=== PATIENT | male | born 1950 | race Caucasian/White ===

== ENCOUNTER 2020-10-31 20:05 | Emergency (ER) | payer MEDICARE ==
--- NOTE | 2020-10-31 20:47 | RAD ---
Exam: Left hand 3 views. Left wrist 3 views INDICATION: Injury TECHNIQUE: Frontal, lateral and oblique views of the left hand and left wrist Comparisons: None FINDINGS: Hand: Bone mineralization is normal. No acute or healed fractures. Soft tissues are unremarkable. Joint spa stan[place] are well-maintained. Wrist: There is a mildly displaced triquetral fracture. Soft tissue swelling along the dorsal aspect of the wrist. Joint spaces are well-maintained. Bone mineralization is normal. IMPRESSION: 1. Mildly displaced triquetral fracture along the dorsal aspect of the wrist. 2. Otherwise, no acute fracture identified at the left hand Electronically signed by: Darren Perez MD (10/31/2020 8:44 PM) JACINDA
--- NOTE | 2020-10-31 20:57 | PHYS DOC ---
General Adult EDM: Chief Complaint: WRIST PAIN HPI: HPI: Patient is a 70-year-old male who presents after a fall with his hand extended. Patient is reporting left wrist pain. Denies hitting head, denies loss of consciousness. Denies dizziness prior to fall. Denies taking anything for pain prior to arrival. Range of motion intact. (DEL BERNARDO APRN) Review of Systems: Review of Systems: Constitutional: Denies fever or chills Eyes: Denies change in visual acuity HENT: Denies nasal congestion or sore throat Respiratory: Denies cough or shortness of breath Cardiovascular: Denies chest pain or edema GI: Denies abdominal pain, nausea, vomiting, bloody stools or diarrhea : Denies dysuria Musculoskeletal: Left wrist pain Integument: Denies rash Neurologic: Denies headache, focal weakness or sensory changes Endocrine: Denies polyuria or polydipsia Lymphatic: Denies swollen glands Psychiatric: Denies depression or anxiety (DEL BERNARDO APRN) Physical Exam: PE: Constitutional: Well developed, well nourished, no acute distress, non-toxic appearance. [] HENT: Normocephalic, atraumatic, bilateral external ears normal, oropharynx moist, no oral exudates, nose normal. [] Eyes: PERRLA, EOMI, conjunctiva normal, no discharge. [] Neck: Normal range of motion, no tenderness, supple, no stridor. [] Cardiovascular:Heart rate regular rhythm, no murmur [] Lungs & Thorax: Bilateral breath sounds clear to auscultation [] Abdomen: Bowel sounds normal, soft, no tenderness, no masses, no pulsatile masses. [] Skin: Warm, dry, no erythema, no rash. [] Back: No tenderness, no CVA tenderness. [] Extremities: Left wrist tenderness, no cyanosis, no clubbing, ROM intact, no edema, radial pulse intact, cap refill less than 2 seconds. [] Neurologic: Alert and oriented X 3, normal motor function, normal sensory function, no focal deficits noted. [] Psychologic: Affect normal, judgement normal, mood normal. [] (DEL BERNARDO APRN) EKG: EKG: [] (DEL BERNARDO APRN) Radiology/Procedures: Radiology/Procedures: [] Exam: Left hand 3 views. Left wrist 3 views INDICATION: Injury TECHNIQUE: Frontal, lateral and oblique views of the left hand and left wrist Comparisons: None FINDINGS: Hand: Bone mineralization is normal. No acute or healed fractures. Soft tissues are unremarkable. Joint spaces are well-maintained. Wrist: There is a mildly displaced triquetral fracture. Soft tissue swelling along the dorsal aspect of the wrist. Joint spaces are well-maintained. Bone mineralization is normal. IMPRESSION: 1. Mildly displaced triquetral fracture along the dorsal aspect of the wrist. 2. Otherwise, no acute fracture identified at the left hand Electronically signed by: Darren Perez MD (10/31/2020 8:44 PM) JACINDA (DEL BERNARDO APRN) Heart Score: C/O Chest Pain: No Risk Factors: Risk Factors: DM, Current or recent (<one month) smoker, HTN, HLP, family history of CAD, obesity. Risk Scores: Score 0 - 3: 2.5% MACE over next 6 weeks - Discharge Home Score 4 - 6: 20.3% MACE over next 6 weeks - Admit for Clinical Observation Score 7 - 10: 72.7% MACE over next 6 weeks - Early Invasive Strategies (DEL BERNARDO APRN) Course & Med Decision Making: Course & Med Decision Making Pertinent Labs and Imaging studies reviewed. (See chart for details) [] 70-year-old male presents after a fall with his hand extended. Mildly displaced triquetral fracture along the dorsal aspect of the wrist. Thumb spica cast applied. Patient given [facility] office phone number. Instructed patient to call tomorrow and make a follow-up appointment. Radial pulses intact, cap refill less than 2 seconds. Range of motion intact. Patient given 5/325 hydrocodone in emergency room. Patient given hydrocodone to take at home until he can follow-up with PCP and Ortho. Gave fall precautions with taking medication. Patient advised to take ibuprofen as well. Patient is appreciative and okay with discharge plan. (DEL BERNARDO APRN) Dragon Disclaimer: Dragon Disclaimer: This electronic medical record was generated, in whole or in part, using a voice recognition dictation system. (DEL BERNARDO APRN) Departure Departure: Impression: Primary Impression: Wrist fracture Qualified Codes: S62.102A - Fracture of unspecified carpal bone, left wrist, initial encounter for closed fracture Disposition: HOME / SELF CARE / HOMELESS Condition: STABLE Referrals: GABBY NUNEZ MD (PCP) Patient Instructions: Wrist Fracture, [id number] Additional Instructions: You were seen in the emergency room for left wrist fracture. A splint was placed on your left wrist. Please call [facility] and make a follow-up appointment. Their number is [phone]. Please call them in the morning to set up an appointment. Return to the emergency room if worsening symptoms or concerns. Ibuprofen at home for discomfort. EMERGENCY DEPARTMENT GENERAL DISCHARGE INSTRUCTIONS Thank you for coming to [facility] (ED) today and trusting us with you care. We trust that you had a positivie experience in our Emergency Department. If you wish to speak to the department management, you may call the director at [phone]. YOUR FOLLOW UP INSTRUCTIONS ARE FOLLOWS: 1. Do you have a private Doctor? If you do not have a private doctor, please ask for a resource list of physicians or clinics that may be able to assist you with follow up care. 2. The Emergency Physician has interpreted your x-rays. The X-Ray specialist will also review them. If there is a change in the findings, you will be notified in 48 hours when at all possible. 3. A lab test or culture has been done, your results will be reviewed and you will be notified if you need a change in treatment. ADDITIONAL INSTRUCTIONS AND INFORMATION: 1. Your care today has been supervised by a physician who is specially trained in emergency care. Many problems require more than one evaluation for a complete diagnosis and treatment. We recommend that you schedule your follow up appointment as recommended to ensure complete treatment of you illness or injury. If you are unable to obtain follow up care and continue to have a problem, or if your condition worsens, we recommend that you return to the ED. 2. We are not able to safely determine your condition over the phone nor are we able to give sound medical advice over the phone. For these safety reasons, if you call for medical advice we will ask you to come to the ED for further evaluation. 3. If you have any questions regarding these discharge instructions please call the ED at [phone]. SAFETY INFORMATION: In the interest of safety, wellness, and injury prevention; we encourage you to wear your sealbelt, if you smoke; quite smoking, and we encourage family to use a protective helmet for bicycling and other sporting events that present an increased risk for head injury. IF YOUR SYMPTOMS WORSEN OR NEW SYMPTOMS DEVELOP, OR YOU HAVE CONCERNS ABOUT YOUR CONDITION; OR IF YOUR CONDITION WORSENS WHILE YOU ARE WAITING FOR YOUR FOLLOW UP APPOINTMENT; EITHER CONTACT YOUR PRIMARY CARE DOCTOR, THE PHYSICIAN WHOSE NAME AND NUMBER YOU WERE GIVEN, OR RETURN TO THE ED IMMEDIATELY. Scripts Hydrocodone Bit/Acetaminophen (HYDROCODONE-APAP 5-325 ) 1 Each Tablet 1 TAB PO PRN Q6HRS PRN for PAIN for 3 Days, #12 TAB 0 Refills Prov: DEL BERNARDO APRN 10/31/20 DEL BERNARDO APRN Oct 31, 2020 20:57 GABBY LEON MD Nov 03, 2020 07:07
[2020-10-31] MEDS ORDERED: HYDROcodone/APAP 5/325MG 1 TAB TABLET PO ONE (21:45)
[2020-10-31] MEDS ORDERED: HYDR-2155 PO (21:56)
== END 2020-10-31 23:18 | disposition home or self-care (01) ==
LOC: ER 20:05
DX: S62.102A Fracture of unspecified carpal bone, left wrist, initial encounter for closed fracture (principal); W18.39XA Other fall on same level, initial encounter; Y93.89 Activity, other specified; Y92.89 Other specified places as the place of occurrence of the external cause; Y99.8 Other external cause status
CPT/HCPCS: 29125; 73110; 73130; 99284